=== PATIENT | male | born 1980 | race Hispanic/Latino ===

== ENCOUNTER 2021-03-03 20:26 | Emergency (ER) | payer BC ==
[~2021-03-03] VITALS: Ht 172.7 cm; Wt 85.3 kg
[~2021-03-03 20:26] MED LIST: FAMO40TA7 PO; GLIM1TAB18 PO; HYDR-4060 PO; LACT10SO76 PO; OMEP40CA21 PO; ONDA8TAB12 PO; POTA20PA32 PO
[2021-03-03 21:25] VITALS: BP 97/52
[2021-03-03] MEDS ORDERED: METO10TA41 PO (22:02)
== END 2021-03-03 22:25 | disposition home or self-care (01) ==
LOC: EDH 20:26
DX: R18.8 Other ascites (principal); R17 Unspecified jaundice; Z79.899 Other long term (current) drug therapy; Z88.0 Allergy status to penicillin; Z85.528 Personal history of other malignant neoplasm of kidney
CPT/HCPCS: 99281

== ENCOUNTER 2021-03-04 16:00 | Inpatient (IN) | payer BC ==
[~2021-03-04] VITALS: Ht 172.7 cm; Wt 95.2 kg
[~2021-03-04 16:00] MED LIST changes: +METO10TA41 PO
[2021-03-04] MEDS ORDERED: 0.9%NACL 1000ML 1,000 ML IV ONE (16:24)
[2021-03-04 16:47] VITALS: BP 95/42
[2021-03-04 17:30] VITALS: BP 93/50
[2021-03-04] MEDS ORDERED: ONDANSETRON ODT 4MG TAB PO PRN (17:45)
[2021-03-04] MEDS ORDERED: METOCLOPRAMIDE 10 MG TABLET PO SCH (17:45)
[2021-03-04 17:47] LABS: BASOPHILS % (AUTO) 0.1 % (0.0-5.0); HEMATOCRIT 33.1 % (42-54); LYMPHOCYTES % (AUTO) 4.2 % (21.0-51.0); MEAN CORPUSCULAR HEMOGLOBIN 21.8 pg (27.0-33.0); MEAN CORPUSCULAR HGB CONC 29.3 g/dL (32.0-36.0); MEAN CORPUSCULAR VOLUME 74.5 fL (79-99); MONOCYTES % (AUTO) 4.3 % (3.0-13.0); NEUTROPHILS % (AUTO) 88.9 % (40.0-77.0); NUCLEATED RED BLOOD CELLS 1.5 % (0.0-0.19); PLATELET COUNT (AUTO) 115 K/uL (130-400); RED BLOOD CELL COUNT(AUTO) 4.44 MIL/uL (4.50-6.20); WHITE BLOOD COUNT (AUTO) 25.3 K/uL (4.8-10.8)
[2021-03-04 17:59] LABS: CREATININE 1.3 mg/dL (0.5-1.5); POTASSIUM 4.1 mmol/L (3.5-5.1)
[2021-03-04] MEDS ORDERED: DIPHENHYDRAMINE HCL 25 MG CAPSULE PO PRN (18:00)
[2021-03-04] MEDS ORDERED: LACTULOSE 20 GM/30 ML UDCUP PO PRN (18:00)
[2021-03-04] MEDS ORDERED: MAG/ALUM/SIMETH 30 ML UDCUP PO PRN (18:00)
[2021-03-04] MEDS ORDERED: ACETAMINOPHEN 325 MG TAB PO PRN (18:00)
[2021-03-04] MEDS ORDERED: GUAIFENESIN-DM 200/20 MG 10 ML PO PRN (18:00)
[2021-03-04] MEDS ORDERED: ONDANSETRON 4MG INJ IV PRN (18:00)
[2021-03-04] MEDS ORDERED: HYDRALAZINE 20MG/ML VIAL IV PRN (18:00)
[2021-03-04 18:04] LABS: BILIRUBIN,TOTAL 3.4 mg/dL (0.2-1.0); TOTAL PROTEIN, SERUM 5.8 g/dL (6.0-8.3)
[2021-03-04 18:15] VITALS: BP 105/59
[2021-03-04] MEDS ORDERED: PIP/TAZ ZOSYN 3.375G 3.375 GM VIAL IVPB SCH (18:15)
[2021-03-04] MEDS ORDERED: 0.9%NACL 50ML IV SCH (18:15)
[2021-03-04] MEDS: CEFEPIME HCL 2 GM VIAL IVP SCH (18:45)
[2021-03-04] MEDS: SOLU-MEDROL 125MG VIAL IVP SCH (18:45)
[2021-03-04] MEDS: IPRATROPIUM/ALBUTEROL SULFATE 3 ML SOLUTION IH SCH ×2 (18:53→23:47)
[2021-03-04 19:46] VITALS: BP 101/48
[2021-03-04] MEDS: BENZONATATE 100 MG CAPSULE PO SCH (20:49)
[2021-03-04] MEDS: FAMOTIDINE 20MG TAB PO SCH (20:49)
[2021-03-04 22:48] VITALS: BP 95/51
[2021-03-05] VITALS (10 sets, daily range): BP systolic 92–106; BP diastolic 49–60
[2021-03-05] MEDS ORDERED: PAMIDRONATE DISODIUM 90MG VIAL 90 MG in 0.9%NACL 1000ML 1,000 ML IV SCH (00:15)
[2021-03-05 00:27] LABS: APPEARANCE,URINE Cloudy (CLEAR); BILIRUBIN,URINE Moderate (NEGATIVE); COLOR,URINE Dark Yellow (YELLOW); GLUCOSE, URINE (UA) 250 mg/dL (NEGATIVE); KETONES,URINE Negative (NEGATIVE); LEUKOCYTE ESTERASE ,URINE Small (NEGATIVE); NITRATE,URINE Positive (NEGATIVE); OCCULT BLOOD,URINE Small (NEGATIVE); PROTEIN,URINE POS 1+ mg/dL (NEGATIVE)
[2021-03-05 00:34] LABS: ABG BASE EXCESS -3.2 mmol/L (-2.0-3.0); ABG OXYGEN SATURATION 97.1 % (95.0-99.0); ABG PCO2 28 mmHg (35-48)
[2021-03-05 00:40] LABS: BACTERIA,URINE Moderate /HPF (None Seen); RBC,URINE 0-1 /HPF (0-1)
[2021-03-05] MEDS: 0.9%NACL 1000ML 1,000 ML IV SCH ×4 (00:46→21:37)
[2021-03-05] MEDS: SOLU-MEDROL 125MG VIAL IVP SCH ×5 (01:53→23:19)
[2021-03-05] MEDS: CEFEPIME HCL 2 GM VIAL IVP SCH ×3 (04:06→18:57)
[2021-03-05] MEDS: IPRATROPIUM/ALBUTEROL SULFATE 3 ML SOLUTION IH SCH ×3 (06:13→18:58)
[2021-03-05 06:17] LABS: BASOPHILS % (AUTO) 0.2 % (0.0-5.0); EOSINOPHILS % (AUTO) 0.5 % (0.0-8.0); HEMATOCRIT 33.8 % (42-54); LYMPHOCYTES % (AUTO) 4.2 % (21.0-51.0); MEAN CORPUSCULAR HEMOGLOBIN 21.3 pg (27.0-33.0); MEAN CORPUSCULAR HGB CONC 28.4 g/dL (32.0-36.0); MEAN CORPUSCULAR VOLUME 74.9 fL (79-99); MONOCYTES % (AUTO) 3.4 % (3.0-13.0); NEUTROPHILS % (AUTO) 89.4 % (40.0-77.0); NUCLEATED RED BLOOD CELLS 1.1 % (0.0-0.19); PLATELET COUNT (AUTO) 106 K/uL (130-400); RED BLOOD CELL COUNT(AUTO) 4.51 MIL/uL (4.50-6.20); RED CELL DISTRIBUTION WIDTH 21.3 % (11.0-15.5); WHITE BLOOD COUNT (AUTO) 24.5 K/uL (4.8-10.8)
[2021-03-05] MEDS: METRONIDAZOLE 500MG/100ML BAG 100 ML IVPB SCH ×2 (06:37→14:31)
[2021-03-05 06:42] LABS: CREATININE 1.2 mg/dL (0.5-1.5); POTASSIUM 3.9 mmol/L (3.5-5.1); THYROID STIMULATING HORMONE 0.98 uIU/mL (0.36-3.74); TOTAL PROTEIN, SERUM 5.8 g/dL (6.0-8.3)
[2021-03-05] MEDS ORDERED: LEVOFLOXACIN 750 MG/D5W 150 ML 150 ML IV SCH (09:00)
[2021-03-05] MEDS: GLIMEPIRIDE 2 MG TABLET PO SCH (09:06)
[2021-03-05] MEDS: BENZONATATE 100 MG CAPSULE PO SCH ×3 (09:06→21:30)
[2021-03-05] MEDS: PANTOPRAZOLE 40 MG TAB DR PO SCH (09:06)
[2021-03-05] MEDS: LACTULOSE 20 GM/30 ML UDCUP PO SCH (09:06)
[2021-03-05] MEDS ORDERED: COLCHICINE 0.6 MG TABLET PO SCH (14:45)
[2021-03-05] MEDS ORDERED: ALBUMIN (HUMAN) 25% 100 ML IV PRN (14:45)
[2021-03-05] MEDS ORDERED: 0.9%NACL 1000ML 1,000 ML IV ONE (16:11)
[2021-03-05 16:45] LABS: INR 1.75 (0.85-1.15); PROTHROMBIN TIME 18.1 SEC (9.6-11.6)
[2021-03-05 16:47] LABS: PARTIAL THROMBOPLASTIN TIME 32.9 SEC (26.3-35.5)
[2021-03-05] MEDS ORDERED: PHYTONADIONE 10 MG in 0.9%NACL 50ML 50 ML IV ONE (18:30)
[2021-03-05] MEDS: COLCHICINE 0.6 MG TABLET PO SCH (21:30)
[2021-03-05] MEDS: FAMOTIDINE 20MG TAB PO SCH (21:30)
[2021-03-05] MEDS: MIDODRINE HCL 5 MG TABLET PO SCH (21:30)
[2021-03-05] MEDS: ACETAMINOPHEN 325 MG TAB PO PRN (23:19)
[2021-03-06] MEDS: IPRATROPIUM/ALBUTEROL SULFATE 3 ML SOLUTION IH SCH ×4 (00:08→19:09)
[2021-03-06] MEDS: METRONIDAZOLE 500MG/100ML BAG 100 ML IVPB SCH ×4 (02:47→22:49)
[2021-03-06] MEDS: CEFEPIME HCL 2 GM VIAL IVP SCH ×3 (03:24→18:33)
[2021-03-06 04:00] VITALS: BP 106/60
[2021-03-06] MEDS: SOLU-MEDROL 125MG VIAL IVP SCH ×3 (04:56→21:29)
[2021-03-06 05:10] LABS: MEAN CORPUSCULAR HEMOGLOBIN 21.4 pg (27.0-33.0); MEAN CORPUSCULAR HGB CONC 27.3 g/dL (32.0-36.0); MEAN CORPUSCULAR VOLUME 78.6 fL (79-99); NUCLEATED RED BLOOD CELLS 1.3 % (0.0-0.19); PLATELET COUNT (AUTO) 85 K/uL (130-400); RED CELL DISTRIBUTION WIDTH 21.9 % (11.0-15.5); WHITE BLOOD COUNT (AUTO) 28.1 K/uL (4.8-10.8)
[2021-03-06 05:35] LABS: ALBUMIN 1.1 g/dL (3.5-5.0); BILIRUBIN,TOTAL 2.8 mg/dL (0.2-1.0); PHOSPHORUS 2.6 mg/dL (2.5-4.9); POTASSIUM 4.3 mmol/L (3.5-5.1); TOTAL PROTEIN, SERUM 5.4 g/dL (6.0-8.3)
[2021-03-06 05:41] LABS: MAGNESIUM 1.8 mg/dL (1.80-2.40)
[2021-03-06 06:20] LABS: INR 1.63 (0.85-1.15)
[2021-03-06 07:24] VITALS: BP 97/53
[2021-03-06] MEDS ORDERED: ALBUMIN (HUMAN) 25% 100 ML IV SCH (07:30)
[2021-03-06] MEDS ORDERED: FUROSEMIDE 20MG VIAL IV SCH (07:45)
[2021-03-06] MEDS: MIDODRINE HCL 5 MG TABLET PO SCH ×3 (08:59→21:29)
[2021-03-06] MEDS: PANTOPRAZOLE 40 MG TAB DR PO SCH (08:59)
[2021-03-06] MEDS: BENZONATATE 100 MG CAPSULE PO SCH ×3 (08:59→21:29)
[2021-03-06] MEDS: COLCHICINE 0.6 MG TABLET PO SCH ×2 (08:59→21:30)
[2021-03-06] MEDS: LACTULOSE 20 GM/30 ML UDCUP PO SCH (08:59)
[2021-03-06] MEDS: GLIMEPIRIDE 2 MG TABLET PO SCH (09:01)
[2021-03-06] MEDS: 0.9%NACL 1000ML 1,000 ML IV SCH ×3 (09:05→21:49)
[2021-03-06 12:12] VITALS: BP 93/63
[2021-03-06] MEDS ORDERED: MAGNESIUM 2GM PREMIX 50ML 50 ML IV PRN (15:30)
[2021-03-06 16:34] VITALS: BP 106/68
[2021-03-06] MEDS: HYDROCODONE/ACETAMINOPHEN 5/325 MG TAB PO PRN (16:45)
[2021-03-06 19:48] VITALS: BP 90/58
[2021-03-06] MEDS ORDERED: SOLU-MEDROL 125MG VIAL IVP SCH (21:00)
[2021-03-06] MEDS: FAMOTIDINE 20MG TAB PO SCH (21:29)
[2021-03-06] MEDS: ACETAMINOPHEN 325 MG TAB PO PRN (22:50)
[2021-03-06 23:43] VITALS: BP 101/60
[2021-03-07] MEDS: IPRATROPIUM/ALBUTEROL SULFATE 3 ML SOLUTION IH SCH ×4 (00:45→18:35)
[2021-03-07] MEDS: CEFEPIME HCL 2 GM VIAL IVP SCH ×3 (01:57→18:16)
[2021-03-07] MEDS: SOLU-MEDROL 125MG VIAL IVP SCH ×4 (01:57→18:17)
[2021-03-07 03:59] VITALS: BP 99/54
[2021-03-07] MEDS: METRONIDAZOLE 500MG/100ML BAG 100 ML IVPB SCH ×3 (05:34→22:10)
[2021-03-07 05:37] LABS: BASOPHILS % (AUTO) 0.2 % (0.0-5.0); HEMATOCRIT 32.3 % (42-54); LYMPHOCYTES % (AUTO) 2.2 % (21.0-51.0); MEAN CORPUSCULAR HEMOGLOBIN 21.4 pg (27.0-33.0); MEAN CORPUSCULAR HGB CONC 28.8 g/dL (32.0-36.0); MEAN CORPUSCULAR VOLUME 74.4 fL (79-99); MONOCYTES % (AUTO) 3.8 % (3.0-13.0); NEUTROPHILS % (AUTO) 91.8 % (40.0-77.0); NUCLEATED RED BLOOD CELLS 1.5 % (0.0-0.19); PLATELET COUNT (AUTO) 72 K/uL (130-400); RED BLOOD CELL COUNT(AUTO) 4.34 MIL/uL (4.50-6.20)
[2021-03-07 05:43] LABS: WHITE BLOOD COUNT (AUTO) 32.9 K/uL (4.8-10.8)
[2021-03-07 05:51] LABS: ALBUMIN 1.2 g/dL (3.5-5.0); BILIRUBIN,TOTAL 2.6 mg/dL (0.2-1.0); CREATININE 1.2 mg/dL (0.5-1.5); POTASSIUM 3.4 mmol/L (3.5-5.1); TOTAL PROTEIN, SERUM 5.3 g/dL (6.0-8.3)
[2021-03-07 06:15] LABS: BAND NEUTROPHILS % (MANUAL) 2 % (0-2); LYMPHOCYTES % (MANUAL) 2 % (22-44); MAN.DIFF COMMENT-IMPRESSION MANUAL DIFFERENTIAL; SEGMENTED NEUTROPHILS % 96 % (40-70)
[2021-03-07 06:16] LABS: PLATELET MORPHOLOGY COMMENT MARKED DECREASE
[2021-03-07 08:00] VITALS: BP 98/55
[2021-03-07] MEDS: PANTOPRAZOLE 40 MG TAB DR PO SCH (10:43)
[2021-03-07] MEDS: COLCHICINE 0.6 MG TABLET PO SCH ×2 (10:43→20:37)
[2021-03-07] MEDS: MIDODRINE HCL 5 MG TABLET PO SCH ×3 (10:43→20:37)
[2021-03-07] MEDS: LACTULOSE 20 GM/30 ML UDCUP PO SCH (10:43)
[2021-03-07] MEDS: BENZONATATE 100 MG CAPSULE PO SCH ×3 (10:43→20:36)
[2021-03-07] MEDS: 0.9%NACL 1000ML 1,000 ML IV SCH ×2 (10:45→18:14)
[2021-03-07 11:48] VITALS: BP 99/60
[2021-03-07 16:00] VITALS: BP 109/58
[2021-03-07 20:10] VITALS: BP 101/56
[2021-03-07] MEDS: FAMOTIDINE 20MG TAB PO SCH (20:37)
[2021-03-07] MEDS: HYDROCODONE/ACETAMINOPHEN 5/325 MG TAB PO PRN (20:57)
[2021-03-07 23:48] VITALS: BP 103/59
[2021-03-08] MEDS: IPRATROPIUM/ALBUTEROL SULFATE 3 ML SOLUTION IH SCH ×3 (00:50→11:11)
[2021-03-08] MEDS: SOLU-MEDROL 125MG VIAL IVP SCH ×3 (02:29→14:34)
[2021-03-08] MEDS: CEFEPIME HCL 2 GM VIAL IVP SCH ×2 (02:29→10:20)
[2021-03-08 03:38] VITALS: BP 100/59
[2021-03-08 05:12] LABS: BASOPHILS % (AUTO) 0.1 % (0.0-5.0); EOSINOPHILS % (AUTO) 0.1 % (0.0-8.0); HEMATOCRIT 32.1 % (42-54); LYMPHOCYTES % (AUTO) 2.8 % (21.0-51.0); MEAN CORPUSCULAR HEMOGLOBIN 21.6 pg (27.0-33.0); MEAN CORPUSCULAR VOLUME 74.7 fL (79-99); MONOCYTES % (AUTO) 4.3 % (3.0-13.0); NEUTROPHILS % (AUTO) 90.4 % (40.0-77.0); NUCLEATED RED BLOOD CELLS 2.3 % (0.0-0.19); PLATELET COUNT (AUTO) 55 K/uL (130-400); RED CELL DISTRIBUTION WIDTH 22.5 % (11.0-15.5); WHITE BLOOD COUNT (AUTO) 28.6 K/uL (4.8-10.8)
[2021-03-08 05:35] LABS: CREATININE 1.2 mg/dL (0.5-1.5); MAGNESIUM 1.7 mg/dL (1.80-2.40); POTASSIUM 3.2 mmol/L (3.5-5.1)
[2021-03-08] MEDS: METRONIDAZOLE 500MG/100ML BAG 100 ML IVPB SCH ×2 (05:51→14:31)
[2021-03-08 07:30] VITALS: BP 102/56
[2021-03-08] MEDS: PANTOPRAZOLE 40 MG TAB DR PO SCH (10:18)
[2021-03-08] MEDS: COLCHICINE 0.6 MG TABLET PO SCH (10:18)
[2021-03-08] MEDS: MIDODRINE HCL 5 MG TABLET PO SCH ×2 (10:18→14:31)
[2021-03-08] MEDS: BENZONATATE 100 MG CAPSULE PO SCH ×2 (10:18→14:31)
[2021-03-08] MEDS: LACTULOSE 20 GM/30 ML UDCUP PO SCH (10:20)
[2021-03-08 11:00] VITALS: BP 108/61
== END 2021-03-08 17:30 | DRG 871 ==
LOC: EDH 16:00 → OBSVTOIN 16:37 → EDHIP 16:37 → 3BH 03-05 21:43
PROVIDERS: ADMIT Internal Medicine Hematology & Oncology; ATTEND Internal Medicine Hematology & Oncology
DX: A41.9 Sepsis, unspecified organism (principal); J18.9 Pneumonia, unspecified organism; E43 Unspecified severe protein-calorie malnutrition; G93.41 Metabolic encephalopathy; E87.2 Acidosis; C64.9 Malignant neoplasm of unspecified kidney, except renal pelvis; C78.7 Secondary malignant neoplasm of liver and intrahepatic bile duct; C78.00 Secondary malignant neoplasm of unspecified lung; D84.9 Immunodeficiency, unspecified; C34.90 Malignant neoplasm of unspecified part of unspecified bronchus or lung; D68.9 Coagulation defect, unspecified; K81.0 Acute cholecystitis; E83.52 Hypercalcemia; E66.9 Obesity, unspecified; D64.9 Anemia, unspecified; I10 Essential (primary) hypertension; E86.9 Volume depletion, unspecified; R58 Hemorrhage, not elsewhere classified; R62.7 Adult failure to thrive; E11.65 Type 2 diabetes mellitus with hyperglycemia; Z68.31 Body mass index [BMI] 31.0-31.9, adult; Z88.0 Allergy status to penicillin; Z83.3 Family history of diabetes mellitus; Z80.51 Family history of malignant neoplasm of kidney; Z82.49 Family history of ischemic heart disease and other diseases of the circulatory system
CPT/HCPCS: 36415; 36600; 71045; 71250; 74176; 76705; 78227; 80048; 80053; 81001; 82140; 82803; 82948; 83690; 83735; 83880; 83970; 84100; 84145; 84443; 85025; 85027; 85378; 85384; 85610; 85730; 87088; 93970; 94640; 94664; 97039; 99281; A9537; G0378; J0692; J1940; J2430; J2930; J3430; J3475; J3490; J7030; P9046